=== PATIENT | female | born 1980 | race Caucasian/White ===

== ENCOUNTER 2016-06-22 12:51 | Emergency (ER) | payer SELFPAY ==
[2016-06-22 12:55] VITALS: BP 100/72; BMI 24.4
--- NOTE | 2016-06-22 14:47 | DR.GENAD ---
HPI - PCP Primary Care Physician: Annabella - Complaint/Symptoms Chief Complaint:: pt is c/o headache and nausea and dropping of the right side that started yesterday. Pts family member states that the pt is having trouble walking & talking. - Source History Provided: Patient - Mode of Arrival Mode of Arrival: Ambulatory - Timing Onset of Chief Complaint: 06/21/16 PMH - PMH Past Medical History: Yes Past Medical History: Anxiety Past Surgical History: Yes Surgical History: - Family History History of Family Medical Conditions: Yes Family Medical History: Diabetes Mellitus, Cancer, [place], Heart Failure, Hypertension - Social History Does patient currently use any type of tobacco product: Yes Have you used tobacco products in the last 12 months: Yes Type of Tobacco Use: Cigarettes Does any household member use tobacco: Yes Alcohol Use: None Do you use any recreational Drugs:: No Lives With: Family Lives Where: Home - infectious screening In the last 2 months have you had wt loss of >10#?: NO Have you had fever, night sweats or hemotysis?: No Have you traveled outside the country in the last 6 months?: No Isolation: Standard PE - Vital Signs Vitals: Temperature 97.9 F Pulse Rate 115 Respiratory Rate 18 Blood Pressure 100/72 O2 Sat by Pulse Oximetry 98 ROR - Labs Reviewed Result Diagrams: 06/22/16 15:54 06/22/16 15:54 Laboratory: WBC 7.0 X10^3/uL (3.6-10.0) 06/22/16 15:54 RBC 4.09 X10^6/uL (3.5-5.4) 06/22/16 15:54 Hgb 13.6 g/dL (12.0-16.0) 06/22/16 15:54 Hct 39.5 % (36.0-47.0) 06/22/16 15:54 MCV 96.4 fL (80.0-100.0) 06/22/16 15:54 MCH 33.2 pg (27.0-34.0) 06/22/16 15:54 MCHC 34.4 g/dL (33.0-35.0) 06/22/16 15:54 RDW 13.0 % (11.6-16.5) 06/22/16 15:54 Plt Count 229 X10^3/uL (150.0-450.0) 06/22/16 15:54 MPV 7.0 fL (7.4-11.0) L 06/22/16 15:54 Neut % 54.8 % (42.0-75.0) 06/22/16 15:54 Lymph % 38.9 % (21.0-51.0) 06/22/16 15:54 [place] % 5.0 % (0.0-13.0) 06/22/16 15:54 Eos % 0.9 % (0.9-2.9) 06/22/16 15:54 Baso % 0.4 % (0.2-1.0) 06/22/16 15:54 Neut # 3.9 x10^3/uL (2.2-4.8) 06/22/16 15:54 Lymph # 2.7 X10^3/uL (1.3-2.9) 06/22/16 15:54 [place] # 0.4 x10^3/uL (0.3-0.8) 06/22/16 15:54 Eos # 0.1 x10^3/uL (0.0-0.2) 06/22/16 15:54 Baso # 0.0 X10^3/uL (0.0-0.1) 06/22/16 15:54 Absolute Nucleated RBC 0.0 /100WBC 06/22/16 15:54 Sodium 135 mmol/L (136-145) L 06/22/16 15:54 Corrected Sodium TNP 06/22/16 15:54 Potassium 3.8 mmol/L (3.5-5.1) 06/22/16 15:54 Chloride 99 mmol/L (98-107) 06/22/16 15:54 Carbon Dioxide 30.7 mmol/L (21-32) 06/22/16 15:54 BUN 5 mg/dL (7-18) L 06/22/16 15:54 Creatinine 0.55 mg/dL (0.55-1.02) 06/22/16 15:54 Est GFR (MDRD) Af Amer > 60 (>60) 06/22/16 15:54 Est GFR (MDRD) Non-Af > 60 (>60) 06/22/16 15:54 Glucose 83 mg/dL (65-99) 06/22/16 15:54 Calcium 8.7 mg/dL (8.5-10.1) 06/22/16 15:54 Corrected Calcium 9.3 mg/dL (8.5-10.1) 06/22/16 15:54 Total Bilirubin 0.10 mg/dL (0.2-1.0) L 06/22/16 15:54 AST 13 Units/L (15-37) L 06/22/16 15:54 ALT 13 Units/L (12-78) 06/22/16 15:54 Alkaline Phosphatase 59 Units/L (46-116) 06/22/16 15:54 Creatine Kinase 49 Units/L (26-192) 06/22/16 15:54 CK-MB (CK-2) < 1.0 ng/mL (0-4.0) 06/22/16 15:54 CK/CKMB % Calc 2.0 % (<4) 06/22/16 15:54 Troponin I < 0.02 ng/mL (0-1.5) 06/22/16 15:54 Total Protein 6.3 g/dL (6.4-8.2) L 06/22/16 15:54 Albumin 3.2 g/dL (3.4-5.0) L 06/22/16 15:54 Globulin 3.1 g/dL (2.5-4.5) 06/22/16 15:54 Albumin/Globulin Ratio 1.0 Ratio (1.1-2.1) L 06/22/16 15:54 Specimen Type Clean catch urine 06/22/16 16:02 Urine Color Yellow (YELLOW) 06/22/16 16:02 Urine Appearance Clear (CLEAR) 06/22/16 16:02 Urine pH 7.0 (5.0 - 8.0) 06/22/16 16:02 Ur Specific [place] 1.005 (1.000-1.030) 06/22/16 16:02 Urine Protein Negative (NEGATIVE) 06/22/16 16:02 Urine Glucose (UA) Negative (NEGATIVE) 06/22/16 16:02 Urine Ketones Negative (NEGATIVE) 06/22/16 16:02 Urine Occult Blood 4+ (NEGATIVE) 06/22/16 16:02 Urine Nitrite Negative (NEGATIVE) 06/22/16 16:02 Urine Bilirubin Negative (NEGATIVE) 06/22/16 16:02 Urine Urobilinogen Normal (NORMAL) 06/22/16 16:02 Ur Leukocyte Esterase Negative (NEGATIVE) 06/22/16 16:02 Urine RBC 0-5 /HPF (NEGATIVE) 06/22/16 16:02 Urine WBC None seen /HPF (NEGATIVE) 06/22/16 16:02 Ur Squamous Epith Cells Many /HPF (NEGATIVE) 06/22/16 16:02 Urine Bacteria Negative /HPF (NEGATIVE) 06/22/16 16:02 Ur Culture Indicated? No/not indicated 06/22/16 16:02 - Discharge Plan Disposition: 01 HOME, SELF-CARE Condition: Stable - Follow ups/Referrals Follow ups/Referrals: Judy NEAL [Primary Care Provider] - 3 days EBONY MYLES [STAFF PHYSICIAN] - 06/23/16 - Instructions Instructions: General Headache Without Cause, [id number] Additional Instructions: RETURN TO ED IF WORSE. MEDS PER DR. MYLES IS ON RECORD.
--- NOTE | 2016-06-22 15:35 | RAD ---
HISTORY: 35-year-old female with chest pain. Study: Single frontal view of the chest. Comparison: Chest radiographs November 20, 2014. Findings: The trachea is midline. The cardiac silhouette is unremarkable. No focal consolidation, effusion o r pneumothorax. The bony thorax is unremarkable. IMPRESSION: 1. No acute cardiopulmonary disease. Reported By:
--- NOTE | 2016-06-22 15:35 | CT ---
HISTORY: Subacute headache with right-sided weakness, facial droop, slurred speech Study: CT brain without contrast Comparison: None Technique: Multiple axial images of the brain were obtained from the skull base to the vertex witho ut administration of IV contrast. AEC was utilized. Findings: No acute intraparenchymal hemorrhage or mass can be identified. No extra-axial fluid collections ar e seen. No alteration in the attenuation of the brain parenchyma can be identified to suggest acute or subacute ischemic change. The ventricular system is symmetric and nondilated. There is a small mucous retention cyst or polyp in the left maxillary sinus. IMPRESSION: No acute intracranial process can be identified. Reported By:
[2016-06-22 16:00] LABS: BASOPHILS % (AUTO) 0.4 % (0.2-1.0); EOSINOPHILS # (AUTO) 0.1 x10^3/uL (0.0-0.2); EOSINOPHILS % (AUTO) 0.9 % (0.9-2.9); HEMATOCRIT 39.5 % (36.0-47.0); HEMOGLOBIN 13.6 g/dL (12.0-16.0); LYMPHOCYTES # (AUTO) 2.7 X10^3/uL (1.3-2.9); LYMPHOCYTES % (AUTO) 38.9 % (21.0-51.0); MEAN CORPUSCULAR HEMOGLOBIN 33.2 pg (27.0-34.0); MEAN CORPUSCULAR HGB CONC 34.4 g/dL (33.0-35.0); MEAN CORPUSCULAR VOLUME 96.4 fL (80.0-100.0); MONOCYTES # (AUTO) 0.4 x10^3/uL (0.3-0.8); NEUTROPHILS # (AUTO) 3.9 x10^3/uL (2.2-4.8); NEUTROPHILS % (AUTO) 54.8 % (42.0-75.0); PLATELET COUNT 229 X10^3/uL (150.0-450.0); RED BLOOD COUNT 4.09 X10^6/uL (3.5-5.4)
[2016-06-22 16:17] LABS: BLOOD UREA NITROGEN 5 mg/dL (7-18); CALCIUM 8.7 mg/dL (8.5-10.1); CARBON DIOXIDE 30.7 mmol/L (21-32); CHLORIDE 99 mmol/L (98-107); CREATININE 0.55 mg/dL (0.55-1.02); GLUCOSE 83 mg/dL (65-99); SODIUM 135 mmol/L (136-145); TROPONIN I < 0.02 ng/mL (0-1.5); eGFR BLACK RACES > 60 (>60); eGFR NON BLACK RACES > 60 (>60)
[2016-06-22 16:22] LABS: ALANINE AMINOTRANSFERASE 13 Units/L (12-78); ALBUMIN 3.2 g/dL (3.4-5.0); ALKALINE PHOSPHATASE 59 Units/L (46-116); ASPARTATE AMINO TRANSFERASE 13 Units/L (15-37); COR CA(FOR HYPOALB) 9.3 mg/dL (8.5-10.1); CREATINE KINASE 49 Units/L (26-192); CREATINE KINASE MB < 1.0 ng/mL (0-4.0); TOTAL PROTEIN 6.3 g/dL (6.4-8.2)
[2016-06-22 16:23] LABS: BILIRUBIN,URINE NEGATIVE (NEGATIVE); BLOOD/HEMOGLOBIN,URINE 4+ (NEGATIVE); GLUCOSE, URINE NEGATIVE (NEGATIVE); KETONES,URINE NEGATIVE (NEGATIVE); LEUKOCYTE ESTERASE ,URINE NEGATIVE (NEGATIVE); NITRITES,URINE NEGATIVE (NEGATIVE); PROTEIN,URINE NEGATIVE (NEGATIVE); UROBILINOGEN,URINE NORMAL (NORMAL)
[2016-06-22 16:30] LABS: APPEARANCE,URINE CLEAR (CLEAR); BACTERIA,URINE NEGATIVE /HPF (NEGATIVE); COLOR,URINE YELLOW (YELLOW); RBC,URINE 0-5 /HPF (NEGATIVE); SQUAMOUS EPITHELIAL CELL,UR MANY /HPF (NEGATIVE)
[2016-06-22] MEDS ORDERED: NAPROSYN PO ONE ×2 (17:56→18:44)
[2016-06-22] MEDS ORDERED: PHENERGAN TAB 25 MG PO ONE (17:56)
== END 2016-06-22 18:49 | disposition home or self-care (01) ==
LOC: ER 13:08
DX: R51 Headache (principal); R11.0 Nausea
CPT/HCPCS: 36415; 70450; 71010; 80053; 81001; 82550; 82553; 84484; 85025; 93005; 93010; 99282; 99283; Q0169

== ENCOUNTER 2016-11-05 11:48 | Emergency (ER) | payer SELFPAY ==
[2016-11-05 12:00] VITALS: BP 100/63; BMI 25.4
--- NOTE | 2016-11-05 12:23 | DR.GENAD ---
HPI - PCP Primary Care Physician: ÁNGEL SORIA Comment HPI Comment: PATIENT PRESENTED TO ED WITH SIMILAR SYMTOMS FEW WEEKS AGO. NEURO CONSULT AND HEAD CT DONE. PENDING NEURO FOLLOW UP IN THE OFFICE. - Complaint/Symptoms Chief Complaint Doctors Comments: HISTORY BELOW. Chief Complaint:: PRESSURE IN HEAD , LOSS OF BALANCE, HAVING TROUBLE WITH HANDS CAN'T CONTROL MOTIONS WITH HANDS. KNEES BUCKLING Self Treatment fo Chief Complaint: HAVING PROBLEMS WITH TOOTH PAIN, INFECTION FOR TWO MONTHS. - Nurses notes reviewed Nurses Notes Review: Yes - Source History Provided: Patient - Mode of Arrival Mode of Arrival: Ambulatory - Timing Onset of Chief Complaint: 11/03/16 Came on: Suddenly - Duration Duration: Constant Duration: Days (HISTORY BELOW) - Severity Severity: Moderate PMH - PMH Past Medical History: Yes Past Medical History: Anxiety Past Surgical History: Yes Surgical History: - Family History History of Family Medical Conditions: Yes Family Medical History: Diabetes Mellitus, Cancer, [place], Heart Failure, Hypertension - Social History Type of Tobacco Use: Cigarettes Does any household member use tobacco: Yes Alcohol Use: Occasionally Do you use any recreational Drugs:: No Lives With: Family Lives Where: Home - infectious screening In the last 2 months have you had wt loss of >10#?: NO Have you had fever, night sweats or hemotysis?: No Have you traveled outside the country in the last 6 months?: No Isolation: Standard ROS - Review of Systems Constitutional: Weakness, Fatigue. negative: Chills, Fever Eyes: No Symptoms Reported. negative: Eye Pain, Discharge ENTM: Ear Pain, Nose Discharge, Nose Congestion, Throat Pain Respiratoy: Productive Cough, Short of Breath, Wheezing. negative: Hemoptysis Cardiovascular: Chest Pain Gastrointestinal/Abdominal: No Symptoms Reported. negative: Abdominal Pain, Diarrhea, Nausea, Vomiting Genitourinary: No Symptoms Reported. negative: Dysuria, Frequency, Hematuria Neurological: Headache, Weakness, Dizziness Musculoskeletal: Muscle Pain Integumentary: No Symptoms Reported Hematologic/Lymphatic: No Symptoms Reported Endocrine: No Symptoms Reported All Other Systems: Reviewed and Negative PE - Vital Signs Vitals: Temperature 97.7 F Pulse Rate 109 Respiratory Rate 20 Blood Pressure 100/63 O2 Sat by Pulse Oximetry 94 - General Limitations: No Limitations General Appearance: Alert - Head Head Exam: Normal Inspection - Eyes Eye exam: Normal Appearance - ENT ENT Exam: Normal External Ear Exam External Ear Exam: Normal External Inspection TM/Canal Exam: Bilateral Normal Nose Exam: Normal Nose Exam Mouth Exam: Other (GUM INFLAME RIGHT UPPER INCISSURE AND CANINE.) Throat Exam: Normal Inspection - Neck Neck Exam: Normal Inspection - Chest Chest Inspection: Symmetric Chest Wall Rise - Respiratory Respiratory Exam: Respiratory Distress Respiratory Exam: Bilateral Rhonchi, Lower Rhonchi - Cardiovascular Cardiovascular Exam: Regular Rate, Normal Rhythm, Normal Heart Sounds - Abdominal Exam Abdominal Exam: Normal Bowel Sounds, Soft. negative: Tenderness - Extremities Extremities Exam: Normal Inspection - Back Back Exam: Normal Inspection - Neurologic Neurological Exam: Alert, Oriented X3 - Psychiatric Psychiatric Exam: Anxious - Skin Skin Exam: Normal Color MDM - Differential Diagnosis Differential Diagnosis: BRONCHITIS, PNEUMONIA, SINUSITIS, DIZZINESS, GINGIVITIS Course - Treatment Treatment: SEE ORDERS. - Reevaluation 1st: Improved (WITH IM MED IN ED.) - Education/Counseling Education/Counseling: Patient, Education Educated On: Treatment, Diagnosis, Needs for Follow Up ROR - Labs Reviewed Laboratory Results Reviewed?: Yes Result Diagrams: 11/05/16 13:10 11/05/16 13:10 Laboratory: WBC 4.6 X10^3/uL (3.6-10.0) 11/05/16 13:10 RBC 3.79 X10^6/uL (3.5-5.4) 11/05/16 13:10 Hgb 12.7 g/dL (12.0-16.0) 11/05/16 13:10 Hct 37.4 % (36.0-47.0) 11/05/16 13:10 MCV 98.7 fL (80.0-100.0) 11/05/16 13:10 MCH 33.5 pg (27.0-34.0) 11/05/16 13:10 MCHC 33.9 g/dL (33.0-35.0) 11/05/16 13:10 RDW 13.6 % (11.6-16.5) 11/05/16 13:10 Plt Count 208 X10^3/uL (150.0-450.0) 11/05/16 13:10 MPV 7.5 fL (7.4-11.0) 11/05/16 13:10 Neut % 63.4 % (42.0-75.0) 11/05/16 13:10 Lymph % 28.0 % (21.0-51.0) 11/05/16 13:10 [place] % 7.4 % (0.0-13.0) 11/05/16 13:10 Eos % 0.5 % (0.9-2.9) L 11/05/16 13:10 Baso % 0.7 % (0.2-1.0) 11/05/16 13:10 Neut # 2.9 x10^3/uL (2.2-4.8) 11/05/16 13:10 Lymph # 1.3 X10^3/uL (1.3-2.9) 11/05/16 13:10 [place] # 0.3 x10^3/uL (0.3-0.8) 11/05/16 13:10 Eos # 0.0 x10^3/uL (0.0-0.2) 11/05/16 13:10 Baso # 0.0 X10^3/uL (0.0-0.1) 11/05/16 13:10 Absolute Nucleated RBC 0.0 /100WBC 11/05/16 13:10 Sodium 137 mmol/L (136-145) 11/05/16 13:10 Corrected Sodium TNP 11/05/16 13:10 Potassium 4.1 mmol/L (3.5-5.1) 11/05/16 13:10 Chloride 104 mmol/L (98-107) 11/05/16 13:10 Carbon Dioxide 29.4 mmol/L (21-32) 11/05/16 13:10 BUN 5 mg/dL (7-18) L 11/05/16 13:10 Creatinine 0.52 mg/dL (0.55-1.02) L 11/05/16 13:10 Est GFR (MDRD) Af Amer > 60 (>60) 11/05/16 13:10 Est GFR (MDRD) Non-Af > 60 (>60) 11/05/16 13:10 Glucose 82 mg/dL (65-99) 11/05/16 13:10 Calcium 8.6 mg/dL (8.5-10.1) 11/05/16 13:10 Corrected Calcium 9.4 mg/dL (8.5-10.1) 11/05/16 13:10 Total Bilirubin 0.20 mg/dL (0.2-1.0) 11/05/16 13:10 AST 20 Units/L (15-37) 11/05/16 13:10 ALT 18 Units/L (12-78) 11/05/16 13:10 Alkaline Phosphatase 52 Units/L (46-116) 11/05/16 13:10 Total Protein 6.4 g/dL (6.4-8.2) 11/05/16 13:10 Albumin 3.0 g/dL (3.4-5.0) L 11/05/16 13:10 Globulin 3.4 g/dL (2.5-4.5) 11/05/16 13:10 Albumin/Globulin Ratio 0.9 Ratio (1.1-2.1) L 11/05/16 13:10 - XRAY XRAY Interpreted by: Radiologist (DIS) XRAY Findings: DISCUSS REPORT WITH PATIENT. - Diagnosis Discharge Problem: Bronchitis, Dizziness, Gingivitis - Discharge Plan Disposition: HOME, SELF-CARE Condition: Stable Prescriptions: Benzonatate [TESSALON PERLES *] 200 mg PO TID PRN #20 cap PRN Reason: Cough Ibuprofen [MOTRIN TAB 600 MG *] 600 mg PO TID PRN #20 tab PRN Reason: Pain/Inflammation Sulfamethoxazole-Trimethoprim [BACTRIM DS TAB 800/160 MG *] 1 tab PO BID #20 tab - Follow ups/Referrals Follow ups/Referrals: EBONY MYLES [STAFF PHYSICIAN] - 11/06/16 Judy NEAL [Primary Care Provider] - 11/06/16 - Instructions Instructions: Gingivitis, [id number], Acute Bronchitis, [id number], Dizziness, [id number] Additional Instructions: RETURN TO ED IF WORSE.
--- NOTE | 2016-11-05 13:14 | RAD ---
HISTORY: Cough Study: Single view of each Comparison: June 22, 2016 Findings: The patient is rotated. The cardiac silhouette is unremarkable. The lungs are clear without focal i nfiltrate or effusion. IMPRESSION: 1. No acute cardiopulmonary disease. Reported By:
[2016-11-05 13:31] LABS: BASOPHILS % (AUTO) 0.7 % (0.2-1.0); EOSINOPHILS % (AUTO) 0.5 % (0.9-2.9); HEMATOCRIT 37.4 % (36.0-47.0); HEMOGLOBIN 12.7 g/dL (12.0-16.0); LYMPHOCYTES # (AUTO) 1.3 X10^3/uL (1.3-2.9); MEAN CORPUSCULAR HEMOGLOBIN 33.5 pg (27.0-34.0); MEAN CORPUSCULAR HGB CONC 33.9 g/dL (33.0-35.0); MEAN CORPUSCULAR VOLUME 98.7 fL (80.0-100.0); MEAN PLATELET VOLUME 7.5 fL (7.4-11.0); MONOCYTES # (AUTO) 0.3 x10^3/uL (0.3-0.8); MONOCYTES % (AUTO) 7.4 % (0.0-13.0); NEUTROPHILS # (AUTO) 2.9 x10^3/uL (2.2-4.8); NEUTROPHILS % (AUTO) 63.4 % (42.0-75.0); PLATELET COUNT 208 X10^3/uL (150.0-450.0); RED BLOOD COUNT 3.79 X10^6/uL (3.5-5.4); RED CELL DISTRIBUTION WIDTH 13.6 % (11.6-16.5); WHITE BLOOD COUNT 4.6 X10^3/uL (3.6-10.0)
[2016-11-05 13:46] LABS: ALANINE AMINOTRANSFERASE 18 Units/L (12-78); ALKALINE PHOSPHATASE 52 Units/L (46-116); ASPARTATE AMINO TRANSFERASE 20 Units/L (15-37); BLOOD UREA NITROGEN 5 mg/dL (7-18); CALCIUM 8.6 mg/dL (8.5-10.1); CARBON DIOXIDE 29.4 mmol/L (21-32); CHLORIDE 104 mmol/L (98-107); COR CA(FOR HYPOALB) 9.4 mg/dL (8.5-10.1); CREATININE 0.52 mg/dL (0.55-1.02); SODIUM 137 mmol/L (136-145); TOTAL PROTEIN 6.4 g/dL (6.4-8.2); eGFR BLACK RACES > 60 (>60); eGFR NON BLACK RACES > 60 (>60)
[2016-11-05] MEDS ORDERED: TORADOL 60 MG VIAL IM ONE (14:19)
[2016-11-05] MEDS ORDERED: TORADOL 60 MG VIAL ONE (14:21)
== END 2016-11-05 15:10 | disposition home or self-care (01) ==
LOC: ER 12:02
DX: J40 Bronchitis, not specified as acute or chronic (principal); R42 Dizziness and giddiness; K05.10 Chronic gingivitis, plaque induced
CPT/HCPCS: 36415; 71010; 80053; 85025; 96372; 99282; 99283; J1885